=== PATIENT | male | born 1965 | race Caucasian/White ===

== ENCOUNTER → 2017-04-10 | Outpatient (CLI) | payer OTHER ==
[~2017-04-10] MED LIST: BENTYL20 MG PO; CARAFATE 1 GM TA1 G1 PO; DEPAKOTE500 MG PO; HYDROCODONE-APA1 TA1 PO; LIPITOR40 MG PO; NORCO 5-325 TA1 EACH PO; OMEPRAZOLE40 MG PO; VITAMIN C1000 MG PO; VITAMIN D3400 UNI2 PO; WELLBUTRIN SR100 MG PO
== END ==
LOC: NEURO 09:36
DX: R56.9 Unspecified convulsions (principal)

== ENCOUNTER → 2017-11-19 | Outpatient (CLI) | payer OTHER | LOC: RAD 13:27 | DX: S83.241A Other tear of medial meniscus, current injury, right knee, initial encounter (principal); E78.00 Pure hypercholesterolemia, unspecified; X58.XXXA Exposure to other specified factors, initial encounter; Y93.89 Activity, other specified; Y92.89 Other specified places as the place of occurrence of the external cause; Y99.8 Other external cause status ==

== ENCOUNTER → 2017-11-28 | Outpatient (CLI) | payer OTHER | LOC: MRI 11-27 13:37 | DX: S83.8X1A Sprain of other specified parts of right knee, initial encounter (principal); S83.281A Other tear of lateral meniscus, current injury, right knee, initial encounter; S83.241A Other tear of medial meniscus, current injury, right knee, initial encounter; X58.XXXA Exposure to other specified factors, initial encounter; Y93.89 Activity, other specified; Y92.89 Other specified places as the place of occurrence of the external cause; Y99.8 Other external cause status ==

== ENCOUNTER → 2018-12-01 | Outpatient (CLI) | payer OTHER | LOC: RAD 14:18 | DX: M25.552 Pain in left hip (principal) ==

== ENCOUNTER 2019-10-31 14:03 | Emergency (ER) | payer OTHER ==
[~2019-10-31] VITALS: Ht 177.8 cm; Wt 79.4 kg
[2019-10-31 16:17] LABS: ANION GAP 10 mmol/L (7-16); BUN 30 mg/dL (7-18); CALCIUM 9.8 mg/dL (8.5-10.1); CHLORIDE 101 mmol/L (98-107); CO2 26 mmol/L (21-32); GLUCOSE 99 mg/dL (74-106); POTASSIUM 3.9 mmol/L (3.5-5.1); SODIUM 137 mmol/L (136-145)
[2019-10-31 16:26] LABS: TROPONIN-I <0.06 ng/mL (<0.06)
[2019-10-31 17:15] VITALS: BP 123/79
== END 2019-10-31 17:15 | disposition home or self-care (01) ==
LOC: ER 14:03
PROVIDERS: Physician Assistant
DX: R06.02 Shortness of breath (principal); K21.9 Gastro-esophageal reflux disease without esophagitis; E78.00 Pure hypercholesterolemia, unspecified; Z20.828 Contact with and (suspected) exposure to other viral communicable diseases; Z87.891 Personal history of nicotine dependence; Z79.899 Other long term (current) drug therapy; Z88.0 Allergy status to penicillin; Z88.8 Allergy status to other drugs, medicaments and biological substances

== ENCOUNTER → 2019-11-02 | Outpatient (CLI) | payer OTHER | LOC: CAT 16:20 | PROVIDERS: ATTEND Neuromusculoskeletal Medicine & OMM | DX: J84.10 Pulmonary fibrosis, unspecified (principal); R91.8 Other nonspecific abnormal finding of lung field; J98.4 Other disorders of lung ==

== ENCOUNTER → 2020-07-28 | Outpatient (CLI) | payer OTHER ==
[2020-07-28 15:14] LABS: ABSOLUTE NEUTROPHILS 4.3 thou/uL (1.4-8.2); BASOPHILS 0.8 % (0.0-2.0); EOSINOPHILS 0.8 % (0.0-3.0); HEMATOCRIT 41.7 % (42.0-52.0); HEMOGLOBIN 14.6 gm/dL (14.0-18.0); LYMPHOCYTES 26.6 % (24.0-44.0); MCH 33.8 pg (26.0-34.0); MCHC 35.1 g/dL (28.0-37.0); MCV 96.3 fL (80.0-100.0); MONOCYTES 7.5 % (1.0-8.0); PLATELET COUNT 177 thou/uL (150-400); POLYS 64.3 % (36.0-66.0); RBC 4.33 mil/uL (4.50-6.00); RDW 12.6 % (10.5-14.5); WBC 6.6 thou/uL (4.0-11.0)
[2020-07-28 15:14] LABS: URINE BILIRUBIN NEGATIVE (Negative); URINE BLOOD NEGATIVE (Negative); URINE CLARITY CLEAR; URINE COLOR YELLOW; URINE GLUCOSE-RANDOM* NEGATIVE (Negative); URINE KETONES NEGATIVE (Negative); URINE LEUKOCYTES-REFLEX NEGATIVE (Negative); URINE NITRITE-REFLEX NEGATIVE (Negative); URINE PROTEIN (DIPSTICK) NEGATIVE (Negative); URINE SPECIFIC GRAVITY >= 1.030 (1.005-1.035); URINE UROBILINOGEN 0.2 E.U./dl (0.2-1.0)
[2020-07-28 15:30] LABS: ALBUMIN 4.4 g/dL (3.4-5.0); ANION GAP 13 mmol/L (7-16); BUN 29 mg/dL (7-18); CALCIUM 9.3 mg/dL (8.5-10.1); CHLORIDE 105 mmol/L (98-107); CHOLESTEROL 191 mg/dL (<200); CO2 25 mmol/L (21-32); CREATININE 1.1 mg/dL (0.7-1.3); GLUCOSE 108 mg/dL (74-106); HDL CHOLESTEROL 43 mg/dL (>40); LDL CHOLESTEROL 94 mg/dL (<100); POTASSIUM 4.4 mmol/L (3.5-5.1); SGPT 91 U/L (30-65); SODIUM 143 mmol/L (136-145); TC:HDL 4.4 Ratio (Not establshd); TOTAL BILIRUBIN 0.7 mg/dL (0.2-1.0); TOTAL PROTEIN 7.7 g/dL (6.4-8.2); TRIGLYCERIDE 273 mg/dL (<150); VLDL 55 mg/dL (<40)
[2020-07-28 16:04] LABS: SGOT 47 U/L (15-37)
[2020-07-29 02:06] LABS: TESTOSTERONE* 304 ng/dL (264-916)
== END ==
LOC: LAB 14:25
PROVIDERS: ATTEND Nurse Practitioner
DX: Z00.00 Encounter for general adult medical examination without abnormal findings (principal); R53.83 Other fatigue

== ENCOUNTER → 2020-09-08 | Outpatient (CLI) | payer OTHER | LOC: CAT 13:28 | PROVIDERS: ATTEND Pediatrics | DX: R91.1 Solitary pulmonary nodule (principal) ==

== ENCOUNTER → 2020-11-09 | Outpatient (CLI) | payer OTHER | LOC: MRI 11:09 | PROVIDERS: ATTEND Neuromusculoskeletal Medicine & OMM | DX: M51.16 Intervertebral disc disorders with radiculopathy, lumbar region (principal); M48.061 Spinal stenosis, lumbar region without neurogenic claudication; M51.17 Intervertebral disc disorders with radiculopathy, lumbosacral region; M48.07 Spinal stenosis, lumbosacral region ==

== ENCOUNTER → 2020-12-12 | Outpatient (CLI) | payer OTHER ==
[~2020-12-12] VITALS: Ht 177.8 cm; Wt 86.2 kg
[~2020-12-12] MED LIST changes: +ADVIL200 M1 PO; +DICYCLOMINE HCL20 MG PO; +SERTRALINE HCL100 MG PO
[2020-12-12 14:25] VITALS: BP 140/90
--- NOTE | 2020-12-12 14:55 | NUR ---
Pain Clinic Assessment: 1. History of Osteoarthritis: * NONE History of Rheumatoid Arthritis: * NONE 2. Height: 5 ft. 10 in. 177.8 cm. Weight: 190.0 lb. oz. 86.184 kg. Patient's BMI: 27.3 3. Vital Signs: BP: 140/90 Pulse: 76 Resp: 16 Temp: 02 Sat: 97 ECG Mon: 4. Pain Intensity: 6 5. Fall Risk: Dizziness: N Needs help standing or walking: N Fallen in the last 3 months: N Fall risk comments: 6. Patient on Blood Thinner: None 7. History of Hypertension: N 8. Opioid Therapy greater than 6 weeks: Opiate Contract Signed: 9. Risk Assessment Tool Provided: LOW RISK- 3 10. Functional Assessment Tool: 36 11. Recreational Drug Use: Never Drug Type: Tobacco Use: Former Smoker Tobacco Type: Cigarettes Amount or Packs/day: How Many Years: 7 Alcohol Use: Yes Frequency: Weekly Quant: 3-4
== END ==
LOC: PAIN 06:47
PROVIDERS: ATTEND Anesthesiology Pain Medicine
DX: Z76.0 Encounter for issue of repeat prescription (principal); M54.5 Low back pain; M79.605 Pain in left leg; M79.671 Pain in right foot; Z87.891 Personal history of nicotine dependence; F32.9 Major depressive disorder, single episode, unspecified; Z79.891 Long term (current) use of opiate analgesic; Z79.899 Other long term (current) drug therapy

== ENCOUNTER → 2020-12-13 | Outpatient (CLI) | payer OTHER ==
[~2020-12-13] VITALS: Ht 177.8 cm; Wt 86.2 kg
--- NOTE | ~2020-12-13 | HPC ---
[facility] [place] [address] PAIN MANAGEMENT CONSULTATION Name: MICHAEL HAWKINS [id number] Admission: 12/13/20 Attend Phys: Glynn Ceron DO Discharge: Date of : 67 Report #: [id number] THIS REPORT FOR: cc: Phillip Garcia,Glynn Ace DO ~ cc: Phillip Garcia MD DATE OF SERVICE: 12/13/2020 CHIEF COMPLAINT: Low back pain, right lower extremity pain with paresthesias. HISTORY OF PRESENT ILLNESS: As you know, the patient is a very pleasant 55-year-old male seen in consultation yesterday 12/12/2020, diagnosed with lumbar radiculopathy and established today's appointment to undergo lumbar epidural injection under fluoroscopic guidance. He returns today in followup visit reporting pain score 6/10. He has had no changes in medication management since our visit of yesterday. He has received authorization to undergo the first in a series of lumbar epidural injections today. ALLERGIES: TRAMADOL, PENICILLIN, FENTANYL. CURRENT MEDICATIONS: Ibuprofen, dicyclomine, sertraline, omeprazole, atorvastatin. SOCIAL HISTORY: Unchanged. He is a reformed smoker. Denies IV or illicit drug use. Admits occasional alcohol beverage. He is working, not receiving workmen's compensation, unaccompanied today. IMAGING: No new imaging available. PHYSICAL EXAMINATION: VITAL SIGNS: Blood pressure 146/88, pulse is 67, respiratory rate 16 and unlabored. The patient 97% on room air. Height 5 feet 10 inches tall, weight 190 pounds, and BMI calculated 27.3. GENERAL: A well-developed, well-nourished, well-hydrated 55-year-old male appearing stated age, pain is rated at 6/10. HEENT: Normocephalic, atraumatic. Pupils equal, round and responsive. He is wearing a mask in compliance with COVID-19 regulations. EXTREMITIES: Show no clubbing, no cyanosis, no edema. MUSCULOSKELETAL: Lower extremity strength equal and symmetrical 5/5, intact to light touch from L1 through S2 dermatomes. Seated straight leg raising negative. Supine straight leg raising positive on the left. ASSESSMENT: 1. Symptomatic lumbar radiculopathy. 2. Displacement of lumbar intervertebral disk with radiculopathy. [address] [address] PAIN MANAGEMENT CONSULTATION Name: MICHAEL HAWKINS Room #: REG CLI [facility]#: [id number] Admission: 12/13/20 Attend Phys: Glynn Ceron DO Discharge: Date of : 67 Report #: [id number] 3. Lumbosacral spondylosis with radiculopathy. 4. Failed lumbar spine surgery. PLAN: 1. The patient returns today in followup visit having received authorization to undergo the first in a series of lumbar epidural injections under fluoroscopic guidance. He has been advised of the risks and the benefits of this procedure. These risks include but are not necessarily limited to bleeding, bruising, infection, worsening pain, no relief of pain, also risk of temporary or permanent muscle weakness, temporary or permanent nerve damage, possible paralysis, post-dural puncture headache and . The patient states understood and wished to proceed. 2. No medication changes made at today's visit. The patient will continue current medical therapy as prior prescribed. 3. We will plan to see the patient back in followup visit in approximately 30 days. At that time, review the efficacy of today's epidural injection and determine next in the series of epidural injections might be recommended. PROCEDURE NOTE DESCRIPTION OF PROCEDURE: L5-S1 right parasagittal epidural steroid injection under fluoroscopic guidance. This is the first procedure of the first series that the patient is undergoing. After obtaining written consent, the patient was taken back to the fluoroscopy suite, placed in a prone position with pillow under the abdomen to decrease lumbar lordosis. The skin overlying the lumbosacral area was then prepped and draped in aseptic fashion. The L5-S1 vertebral interspace was then identified by AP fluoroscopy. The skin and subcutaneous tissue overlying the target site of injection was anesthetized with 3 mL 1% lidocaine. A 20-gauge 3-1/2 inch Tuohy needle was then advanced under fluoroscopic guidance towards the epidural space using a left parasagittal approach. The epidural space was identified using loss of resistance to air technique. After negative aspiration for heme or cerebrospinal fluid, a total of 1 mL of Omnipaque was injected. A lumbar epidurogram was confirmed using both AP and lateral fluoroscopy. After negative aspiration for heme or cerebrospinal fluid, of a solution containing 2 mL 40 mg per mL 80 mg total triamcinolone along with 3 mL of lidocaine 1% was injected in increments. Contrast spread was noted in the posterior epidural space. The needle was then retracted approximately half way and needle tract flushed with 1 mL of 1% lidocaine. Needle was then removed. There were no apparent sensory or motor deficits in the lower extremity following the procedure. A sterile bandage was placed over the injection site. The heart rate, pulse, oximetry and blood pressure were continuously monitored [address] [address] PAIN MANAGEMENT CONSULTATION Name: MICHAEL HAWKINS Room #: REG CLI [facility]#: [id number] Admission: 12/13/20 Attend Phys: Glynn Ceron DO Discharge: Date of : 67 Report #: [id number] after the procedure. There were no apparent complications. The patient tolerated the procedure well and was carefully escorted to the recovery room in stable condition. There were no apparent complications. After meeting discharge criteria, the patient was then discharged home. By: [id number] Glynn Ceron DO /nt
[2020-12-13 10:31] VITALS: BP 146/88
--- NOTE | 2020-12-13 10:46 | NUR ---
Pain Clinic Assessment: 1. History of Osteoarthritis: * NONE History of Rheumatoid Arthritis: * NONE 2. Height: 5 ft. 10 in. 177.8 cm. Weight: 190.0 lb. oz. 86.184 kg. Patient's BMI: 27.3 3. Vital Signs: BP: 146/88 Pulse: 67 Resp: 16 Temp: 02 Sat: 97 ECG Mon: 4. Pain Intensity: 6 5. Fall Risk: Dizziness: N Needs help standing or walking: N Fallen in the last 3 months: N Fall risk comments: 6. Patient on Blood Thinner: None 7. History of Hypertension: N 8. Opioid Therapy greater than 6 weeks: Opiate Contract Signed: 9. Risk Assessment Tool Provided: LOW RISK- 3 10. Functional Assessment Tool: 36 11. Recreational Drug Use: Never Drug Type: Tobacco Use: Former Smoker Tobacco Type: Amount or Packs/day: How Many Years: Alcohol Use: Yes Frequency: Weekly Quant: 2
== END | disposition home or self-care (01) ==
LOC: PAIN 06:51
PROVIDERS: ATTEND Anesthesiology Pain Medicine
DX: M51.16 Intervertebral disc disorders with radiculopathy, lumbar region (principal); M47.27 Other spondylosis with radiculopathy, lumbosacral region; M96.1 Postlaminectomy syndrome, not elsewhere classified; Z98.890 Other specified postprocedural states; Z79.899 Other long term (current) drug therapy; Z88.0 Allergy status to penicillin; Z88.8 Allergy status to other drugs, medicaments and biological substances

== ENCOUNTER → 2020-12-22 | Outpatient (CLI) | payer OTHER ==
[2020-12-22 12:54] LABS: ABSOLUTE NEUTROPHILS 4.7 thou/uL (1.4-8.2); BASOPHILS 0.7 % (0.0-2.0); EOSINOPHILS 0.6 % (0.0-3.0); HEMATOCRIT 41.3 % (42.0-52.0); HEMOGLOBIN 14.5 gm/dL (14.0-18.0); MCH 34.3 pg (26.0-34.0); MCV 97.9 fL (80.0-100.0); PLATELET COUNT 181 thou/uL (150-400); POLYS 68.7 % (36.0-66.0); RBC 4.22 mil/uL (4.50-6.00); RDW 13.3 % (10.5-14.5); WBC 6.8 thou/uL (4.0-11.0)
[2020-12-22 13:11] LABS: ALBUMIN 4.5 g/dL (3.4-5.0); ANION GAP 11 mmol/L (7-16); BUN 21 mg/dL (7-18); CALCIUM 9.6 mg/dL (8.5-10.1); CHLORIDE 100 mmol/L (98-107); CHOLESTEROL 172 mg/dL (<200); CO2 27 mmol/L (21-32); CREATININE 1.1 mg/dL (0.7-1.3); GLUCOSE 83 mg/dL (74-106); HDL CHOLESTEROL 45 mg/dL (>40); LDL CHOLESTEROL 105 mg/dL (<100); POTASSIUM 4.2 mmol/L (3.5-5.1); SGOT 32 U/L (15-37); SGPT 65 U/L (30-65); SODIUM 138 mmol/L (136-145); TC:HDL 3.8 Ratio (Not establshd); TOTAL BILIRUBIN 0.8 mg/dL (0.2-1.0); TOTAL PROTEIN 7.7 g/dL (6.4-8.2); TRIGLYCERIDE 111 mg/dL (<150); VLDL 22 mg/dL (<40)
[2020-12-23 01:06] LABS: TESTOSTERONE* 266 ng/dL (264-916)
== END ==
LOC: LAB 07:25
PROVIDERS: ATTEND Nurse Practitioner
DX: I10 Essential (primary) hypertension (principal); E78.5 Hyperlipidemia, unspecified

== ENCOUNTER → 2021-01-25 | Outpatient (CLI) | payer OTHER | LOC: RAD 12:36 | PROVIDERS: ATTEND Nurse Practitioner | DX: R07.81 Pleurodynia (principal) ==

== ENCOUNTER → 2021-03-07 | Outpatient (CLI) | payer OTHER ==
[~2021-03-07] VITALS: Ht 177.8 cm; Wt 88.6 kg
[~2021-03-07] MED LIST changes: +NORVASC5 MG PO
[2021-03-07 10:01] VITALS: BP 108/72
--- NOTE | 2021-03-07 10:09 | NUR ---
Pain Clinic Assessment: 1. History of Osteoarthritis: * NONE History of Rheumatoid Arthritis: * NONE 2. Height: 5 ft. 10 in. 177.8 cm. Weight: 195.4 lb. oz. 88.633 kg. Patient's BMI: 28.0 3. Vital Signs: BP: 108/72 Pulse: 85 Resp: 16 Temp: 02 Sat: 97 ECG Mon: 4. Pain Intensity: 7 5. Fall Risk: Dizziness: N Needs help standing or walking: N Fallen in the last 3 months: N Fall risk comments: 6. Patient on Blood Thinner: None 7. History of Hypertension: N 8. Opioid Therapy greater than 6 weeks: Opiate Contract Signed: 9. Risk Assessment Tool Provided: LOW RISK- 3 10. Functional Assessment Tool: 11. Recreational Drug Use: Never Drug Type: Tobacco Use: Former Smoker Tobacco Type: Amount or Packs/day: How Many Years: Alcohol Use: Yes Frequency: Special Occasions Quant: 2-3
--- NOTE | 2021-03-13 15:00 | HPC ---
[address] [address] PAIN MANAGEMENT CONSULTATION Name: MICHAEL HAWKINS Room #: REG [facility] Martha.#: [id number] Admission: 03/07/21 Attend Phys: Glynn Ceron DO Discharge: Date of : 67 Report #: [id number] THIS REPORT FOR: cc: Phillip Garcia,Glynn Ace DO ~ cc: Phillip Garcia MD DATE OF SERVICE: 03/07/2021 CHIEF COMPLAINT: Low back pain, right lower extremity pain with paresthesias. HISTORY OF PRESENT ILLNESS: As you know, the patient is a very pleasant 55-year-old male referred to our service for suspected lumbar radiculopathy involving the low back and right lower extremity. The patient was seen in consultation, undergoing first a series of lumbar epidural injections on 12/13/2020. The patient reports excellent benefit with that injection, 80% improvement in overall pain, lasting for nearly 2 months. Unfortunately, his symptoms did reoccur. He returns today in followup visit with pain score of 7/10. States his pain begins in low back, radiates down the right leg to the foot. He states the pain is aching, sharp, numbness and tingling in sensation. He returns today in followup visit to undergo lumbar epidural injection under fluoroscopic guidance to build on success of previous intervention. The patient denies injury, trauma or any changes in medication management that would preclude him from undergoing an injection today. ALLERGIES: TRAMADOL, PENICILLIN, FENTANYL. CURRENT MEDICATIONS: Amlodipine, ibuprofen, dicyclomine, sertraline, omeprazole, atorvastatin. SOCIAL HISTORY: The patient denies tobacco. Denies IV or illicit drug use. Denies any chronic alcohol use. He is working, not receiving workmen's compensation, unaccompanied today. IMAGING: No new imaging available. PHYSICAL EXAMINATION: VITAL SIGNS: Blood pressure 108/72, pulse 85, respiratory rate 16 and unlabored. The patient is 97% on room air. Height 5 feet 10 inches tall, weight 195.4 pounds, BMI calculated 28.0. GENERAL: Well-developed, well-nourished, well-hydrated 55-year-old male appearing stated age, pain is rated today 7/10. HEENT: Normocephalic, atraumatic. Pupils equal, round and responsive. EXTREMITIES: Show no clubbing, no appreciable cyanosis, no edema. MUSCULOSKELETAL: Lower extremity strength equal and symmetrical 5/5, intact to light touch from L1 through S2 dermatomes. Seated straight leg raising [address] [address] PAIN MANAGEMENT CONSULTATION Name: MICHAEL HAWKINS Room #: REG [facility].#: [id number] Admission: 03/07/21 Attend Phys: Glynn Ceron DO Discharge: Date of : 67 Report #: [id number] negative. Supine straight leg raising is positive on the right. Fabere's test is negative. ASSESSMENT: 1. Symptomatic lumbar radiculopathy. 2. Displacement of lumbar intervertebral disk with radiculopathy. 3. Lumbosacral spondylosis with radiculopathy. PLAN: 1. The patient returns today in followup visit, having noted an 80% improvement in overall pain with the epidural injection provided at last visit. He returns today in followup visit with slow and progressive return of symptoms. He is requesting and we will perform the next in the series of lumbar epidural injections. The patient has been advised risks and benefits of the procedure, states understood and wished to proceed. 2. No medication changes made at today's visit. The patient will continue current medical therapy as prior prescribed. 3. Plan to see the patient back in followup visit on an as needed basis for the next in the series of lumbar epidural injections. We are hopeful the patient once again see good and prolonged benefit. DESCRIPTION OF PROCEDURE: L5-S1 right parasagittal epidural steroid injection under fluoroscopic guidance. This is the second procedure of the first series that the patient is undergoing. After obtaining written consent, the patient was taken back to the fluoroscopy suite, placed in a prone position with pillow under the abdomen to decrease lumbar lordosis. The skin overlying the lumbosacral area was then prepped and draped in aseptic fashion. The L5-S1 vertebral interspace was then identified by AP fluoroscopy. The skin and subcutaneous tissue overlying the target site of injection was anesthetized with 3 mL 1% lidocaine. A 20-gauge 3-1/2 inch Tuohy needle was then advanced under fluoroscopic guidance towards the epidural space using a right parasagittal approach. The epidural space was identified using loss of resistance to air technique. After negative aspiration for heme or cerebrospinal fluid, a total of 1 mL of Omnipaque was injected. A lumbar epidurogram was confirmed using both AP and lateral fluoroscopy. After negative aspiration for heme or cerebrospinal fluid, 5 mL of a solution containing 2 mL, 40 mg/mL, 80 mg total triamcinolone along with 3 mL of lidocaine 1% was injected in increments. Contrast spread was noted posterior epidural space. The needle was then retracted approximately half way and needle tract flushed with 1 mL of 1% lidocaine. Needle was then removed. There were no apparent sensory or motor deficits in the lower extremity following the procedure. A sterile bandage was placed over the injection site. [facility] [address] [place] [address] PAIN MANAGEMENT CONSULTATION Name: MICHAEL HAWKINS Room #: REG [facility]#: [id number] Admission: 03/07/21 Attend Phys: Glynn Ceron DO Discharge: Date of : 67 Report #: [id number] The heart rate, pulse, oximetry and blood pressure were continuously monitored after the procedure. There were no apparent complications. The patient tolerated the procedure well and was carefully escorted to the recovery room in stable condition. There were no apparent complications. After meeting discharge criteria, the patient was then discharged home. <ELECTRONICALLY SIGNED> By: Glynn Ceron DO 03/13/21 [id number] Glynn Ceron DO /nt
== END | disposition home or self-care (01) ==
LOC: PAIN 09:21
PROVIDERS: ATTEND Anesthesiology Pain Medicine
DX: M51.16 Intervertebral disc disorders with radiculopathy, lumbar region (principal); M47.27 Other spondylosis with radiculopathy, lumbosacral region; G89.29 Other chronic pain; Z98.890 Other specified postprocedural states; Z79.899 Other long term (current) drug therapy; Z88.0 Allergy status to penicillin; Z88.8 Allergy status to other drugs, medicaments and biological substances

== ENCOUNTER 2021-05-05 11:37 | Emergency (ER) | payer OTHER ==
[~2021-05-05] VITALS: Ht 177.8 cm; Wt 86.2 kg
[2021-05-05 12:52] VITALS: BP 134/91
== END 2021-05-05 12:54 | disposition home or self-care (01) ==
LOC: ER 11:37
PROVIDERS: Physician Assistant
DX: R53.83 Other fatigue (principal); Z20.822 Contact with and (suspected) exposure to COVID-19; Z90.49 Acquired absence of other specified parts of digestive tract; Z79.899 Other long term (current) drug therapy; Z87.891 Personal history of nicotine dependence; Z88.0 Allergy status to penicillin; Z88.8 Allergy status to other drugs, medicaments and biological substances

== ENCOUNTER → 2021-06-06 | Outpatient (CLI) | payer OTHER | LOC: CAT 04-23 10:37 | PROVIDERS: ATTEND Nurse Practitioner | DX: R22.1 Localized swelling, mass and lump, neck (principal) ==